=== PATIENT | male | born 2000 | race Caucasian/White ===

== ENCOUNTER 2021-12-27 13:45 | Emergency (ER) | payer BC, OTHER ==
[~2021-12-27] VITALS: Ht 190.5 cm; Wt 136.4 kg
[2021-12-27 13:53] VITALS: TEMP 97.3
[2021-12-27 15:06] LABS: ALBUMIN 4.6 gm/dL (3.5-5.0); CREATININE, serum 1.65 mg/dL (0.72-1.25); MAGNESIUM 1.9 mg/dL (1.6-2.6); POTASSIUM 4.2 mmol/L (3.5-4.5)
[2021-12-27 15:50] VITALS: BP 127/77; PULSE 86
== END 2021-12-27 16:11 | disposition home or self-care (01) ==
LOC: COL.ER 13:45
PROVIDERS: Emergency Medicine
DX: T67.2XXA Heat cramp, initial encounter (principal); E86.0 Dehydration; R74.8 Abnormal levels of other serum enzymes; Z28.310 Unvaccinated for COVID-19
CPT/HCPCS: J7120